=== PATIENT | male | born 1980 | race African-American/Black ===

== ENCOUNTER 2024-01-27 19:02 | Inpatient (IN) | payer MEDICAID ==
[~2024-01-27] VITALS: Ht 165.1 cm; Wt 75.9 kg
[2024-01-27 21:15] LABS: BASOPHILS % (AUTO) 0.6 % (0.0-2.0); EOSINOPHILS % (AUTO) 2.2 % (1.0-6.0); HEMATOCRIT 32.5 % (41-53); HEMOGLOBIN 10.3 g/dL (13.5-17.5); LYMPHOCYTES # (AUTO) 1.9 K/uL (1.0-4.8); MEAN CORPUSCULAR HEMOGLOBIN 21.8 pg (26.0-34.0); MEAN CORPUSCULAR HGB CONC 31.6 G/dL (31.0-37.0); MEAN CORPUSCULAR VOLUME 69 fL (80-100); MONOCYTES # (AUTO) 0.6 K/uL (0.1-1.0); MONOCYTES % (AUTO) 11.8 % (2.0-9.0); NEUTROPHILS # (AUTO) 2.8 K/uL (1.8-7.7); NEUTROPHILS % (AUTO) 50.4 % (40.0-70.0); PLATELET COUNT (AUTO) 132 K/uL (150-450); RED CELL DISTRIBUTION WIDTH 16.2 % (11.5-14.5); WHITE BLOOD COUNT (AUTO) 5.5 K/uL (4.5-11.0)
[2024-01-27] MEDS: HydrALAZINE HCL 25 MG TABLET PO ONE (21:21)
[2024-01-27 21:28] LABS: CALCIUM, TOTAL 8.1 mg/dL (8.8-10.5); CREATININE 3.4 mg/dL (0.60-1.30); POTASSIUM 3.8 mmol/L (3.5-5.1)
[2024-01-27 21:29] LABS: RBC MORPHOLOGY COMMENT ABNORMAL RBC MORPH
[2024-01-27 21:34] LABS: ALBUMIN 3.7 g/dL (3.4-5.0); BILIRUBIN,TOTAL 0.4 mg/dL (0.1-1.0); TOTAL PROTEIN, SERUM 7.5 g/dL (6.4-8.2)
[2024-01-27 21:36] LABS: TROPONIN I-HIGH SENSITIVITY 53 ng/L (<76)
[2024-01-27 23:02] LABS: APPEARANCE,URINE CLEAR (CLEAR); BILIRUBIN,URINE NEGATIVE (NEGATIVE); COLOR,URINE COLORLESS (YELLOW); GLUCOSE, URINE (UA) 70-100 mg/dL (NEGATIVE); KETONES,URINE NEGATIVE (NEGATIVE); LEUKOCYTE ESTERASE ,URINE NEGATIVE (NEGATIVE); NITRATE,URINE NEGATIVE (NEGATIVE); OCCULT BLOOD,URINE SMALL (NEGATIVE); PROTEIN,URINE 30-70 mg/dL (NEGATIVE); SPECIFIC GRAVITIY, URINE 1.008 (1.003-1.030); UROBILINOGEN,URINE <=1.0 mg/dL (<=1.0)
[2024-01-27] MEDS: NiCARDipine HCL 25 MG in SODIUM CHLORIDE 0.9% 240 ML IV PRN (23:11)
[2024-01-27 23:14] LABS: BACTERIA,URINE Few /HPF (None Seen); SQUAMOUS EPITHELIAL CELL,UR Few /LPF (None Seen); WBC,URINE 0-2 /HPF (0-5)
[2024-01-27] MEDS: ACETAMINOPHEN 500 MG TABLET PO ONE (23:15)
[2024-01-28] MEDS: HydrALAZINE HCL 20 MG/ML VIAL IVP PRN (04:50)
[2024-01-28] MEDS: AmLODIPine BESYLATE 10 MG TABLET PO ONE (06:29)
[2024-01-28 07:09] LABS: CALCIUM, TOTAL 8.5 mg/dL (8.8-10.5); CREATININE 3.35 mg/dL (0.60-1.30); POTASSIUM 3.9 mmol/L (3.5-5.1)
[2024-01-28 07:35] LABS: TROPONIN I-HIGH SENSITIVITY 126 ng/L (<76)
[2024-01-28] MEDS: ASPIRIN 325 MG TABLET PO ONE (08:10)
[2024-01-28] MEDS: NITROGLYCERIN 2% (1 GM=INCH) OINTMENT PACKET TP ONE (08:10)
[2024-01-28] MEDS: LOSARTAN POTASSIUM 50 MG TABLET PO ONE (10:00)
[2024-01-28] MEDS ORDERED: ACETAMINOPHEN 325 MG TABLET PO PRN (11:30)
[2024-01-28] MEDS ORDERED: ONDANSETRON HCL 4 MG/2 ML VIAL IVP PRN (11:30)
[2024-01-28] MEDS: SODIUM CHLORIDE 0.9% 1,000 ML IV SCH (12:03)
[2024-01-28 13:17] LABS: TROPONIN I-HIGH SENSITIVITY 162 ng/L (<76)
[2024-01-28 18:13] VITALS: BP 133/91; PULSE 93; RESP 23; TEMP 98; O2SAT 98
[2024-01-28 20:15] VITALS: BP 127/92; PULSE 89; RESP 19; TEMP 98.4; O2SAT 98
[2024-01-28] MEDS: DOCUSATE SODIUM 100 MG CAPSULE PO SCH (21:00)
[2024-01-28 22:03] LABS: APPEARANCE,URINE CLEAR (CLEAR); BILIRUBIN,URINE NEGATIVE (NEGATIVE); COLOR,URINE LIGHT YELLOW (YELLOW); GLUCOSE, URINE (UA) TRACE mg/dL (NEGATIVE); KETONES,URINE NEGATIVE (NEGATIVE); LEUKOCYTE ESTERASE ,URINE NEGATIVE (NEGATIVE); NITRATE,URINE NEGATIVE (NEGATIVE); OCCULT BLOOD,URINE SMALL (NEGATIVE); PROTEIN,URINE 100-200,SEE CONFIRM mg/dL (NEGATIVE); SPECIFIC GRAVITIY, URINE 1.014 (1.003-1.030); UROBILINOGEN,URINE <=1.0 mg/dL (<=1.0)
[2024-01-28 22:12] LABS: BACTERIA,URINE Rare /HPF (None Seen); SQUAMOUS EPITHELIAL CELL,UR Rare /LPF (None Seen); WBC,URINE 0-2 /HPF (0-5)
[2024-01-28 22:15] LABS: AMPHET/METH SCREEN,URINE NEGATIVE (NEGATIVE); BARBITURATE SCREEN, URINE NEGATIVE (NEGATIVE); BENZODIAZEPINES SCREEN,URINE NEGATIVE (NEGATIVE); CANNABINOID SCREEN,URINE NEGATIVE (NEGATIVE); COCAINE SCREEN,URINE NEGATIVE (NEGATIVE); METHADONE SCREEN, URINE NEGATIVE (NEGATIVE); OPIATE SCREEN,URINE NEGATIVE (NEGATIVE); PHENCYCLIDINE SCREEN,URINE NEGATIVE (NEGATIVE)
[2024-01-28 22:16] LABS: ALCOHOL, URINE DRUG SCREEN NEGATIVE (NEGATIVE)
[2024-01-28 23:22] LABS: SULFOSALICYLIC ACID,URINE 2+ (Negative)
[2024-01-28 23:43] VITALS: BP 137/98; PULSE 106; RESP 19; TEMP 98.4; O2SAT 100
[2024-01-29 03:18] VITALS: BP 125/79; PULSE 111; RESP 19; TEMP 98.9; O2SAT 98
[2024-01-29 07:24] VITALS: BP 159/100; PULSE 103; RESP 18; TEMP 98.5; O2SAT 97
[2024-01-29] MEDS: FAMOTIDINE 20 MG TABLET PO SCH (08:29)
[2024-01-29] MEDS: AmLODIPine BESYLATE 10 MG TABLET PO SCH (08:29)
[2024-01-29] MEDS: METOPROLOL TARTRATE 25 MG TABLET PO SCH (08:29)
[2024-01-29 11:57] VITALS: BP_SYST 132; BP_SYST 166; BP_DIAS 104; BP_DIAS 68; PULSE 101; PULSE 86; RESP 18; TEMP 98; O2SAT 95; O2SAT 98
[2024-01-29] MEDS: CloNIDine HCL 0.1 MG TABLET PO PRN (12:19)
[2024-01-29 14:55] VITALS: BP 112/68; PULSE 83; RESP 18; TEMP 98.2; O2SAT 99
[2024-01-29 20:28] VITALS: BP 159/113; PULSE 85; RESP 18; TEMP 97.4; O2SAT 100
[2024-01-29 23:48] LABS: CREATININE,URINE RANDOM 118.4 mg/dL (30.0-125.0)
[2024-01-30] VITALS (8 sets, daily range): BP systolic 127–180; BP diastolic 76–100; PULSE 72–85; RESP 17–20; TEMP 97.3–98.2; O2SAT 96–100
[2024-01-30 08:19] LABS: CALCIUM, TOTAL 8.9 mg/dL (8.8-10.5); CREATININE 3.78 mg/dL (0.60-1.30); MAGNESIUM 2.2 mg/dL (1.80-2.40); PHOSPHORUS 3.2 mg/dL (2.5-4.9); POTASSIUM 3.6 mmol/L (3.5-5.1)
[2024-01-30 17:15] LABS: CREATININE 3.46 mg/dL (0.60-1.30)
[2024-01-31 00:56] VITALS: BP 129/89; PULSE 75; RESP 20; TEMP 98; O2SAT 95
[2024-01-31 05:10] VITALS: BP 148/75; PULSE 84; RESP 18; TEMP 97.9; O2SAT 97
[2024-01-31 09:21] VITALS: BP 168/98; PULSE 78; RESP 18; TEMP 98.3; O2SAT 100
[2024-01-31] MEDS ORDERED: AMLO-258 PO (11:41)
[2024-01-31] MEDS ORDERED: METO25 PO (11:42)
[2024-01-31] MEDS ORDERED: LOSA-381 PO (11:43)
[2024-01-31] MEDS: LOSARTAN POTASSIUM 25 MG TABLET PO ONE (13:17)
[2024-01-31] MEDS ORDERED: METOPROLOL TARTRATE 25 MG TABLET PO SCH (21:00)
== END 2024-01-31 14:15 | disposition home or self-care (01) | DRG 199 ==
LOC: EMS 19:02 → EDH 01-28 02:48 → 5S 01-28 17:57
PROVIDERS: ADMIT Internal Medicine; ATTEND Internal Medicine
DX: I16.1 Hypertensive emergency (principal); N17.0 Acute kidney failure with tubular necrosis; D63.1 Anemia in chronic kidney disease; I12.9 Hypertensive chronic kidney disease with stage 1 through stage 4 chronic kidney disease, or unspecified chronic kidney disease; N18.9 Chronic kidney disease, unspecified; Z91.148 Patient's other noncompliance with medication regimen for other reason; Z91.199 Patient's noncompliance with other medical treatment and regimen due to unspecified reason; Z79.899 Other long term (current) drug therapy
CPT/HCPCS: 70450; 76770; 80048; 80053; 80307; 81001; 81002; 82550; 82565; 82570; 83735; 84100; 84156; 84484; 84520; 85025; 93005; 93306; 99291; J0360; J3490; J7030; J7050